=== PATIENT | male | born 1985 | race Two or more races ===

== ENCOUNTER 2025-07-28 01:54 | Emergency (ER) | payer SELFPAY ==
[2025-07-28 01:56] VITALS: BP 144/100
[2025-07-28] MEDS: TYLENOL 1000 MG PO (03:57)
[2025-07-28 04:49] VITALS: BP 129/79
[2025-07-28 05:00] VITALS: BP 127/81
--- NOTE | 2025-07-28 05:42 | ED.GENMED ---
History of Present Illness
General
Chief Complaint: Musculo-Skeletal Complaint
Source: patient
Exam Limitations: none
Time Seen by Provider: 07/28/25 05:03
Nursing documentation reviewed up to this point in time: agreed with
History of Present Illness
History of Present Illness:
Note:
CHIEF COMPLAINT(S)
Knee pain and trouble bearing weight
HISTORY OF PRESENT ILLNESS
The patient, a 40-year-old male with no pmh, presents today with reports knee pain for the past few weeks. Today, while walking up steps, he felt as though something 'cracked' or pop in his knee, causing pain. He denies falling but describes
difficulty bearing weight and experiencing significant pain when trying to stand or walk. The pain is primarily located at the front of the knee and is described as exacerbated by movement. There is no mention of previous similar incidents or
specific events that triggered the initial onset. The patient denies any numbness or tingling sensations. He reports that he may have twisted and externally rotated his knee when going up the stairs. The current state of pain prevents the patient
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 He denies fevers or chills, rashes, recent surgeries, recent joint injections.
PAST MEDICAL AND SURIGICAL HISTORY
The patient reports a sensitivity to ibuprofen, resulting in acid reflux symptoms.
PHYSICAL EXAM
General: Alert, in distress due to pain
Skin: Warm and dry
Head: Normocephalic, atraumatic
Neck: Supple, trachea midline
Eye, Ears, Nose, Mouth, and Throat: Oral mucosa moist
Cardiovascular: Normal peripheral perfusion, No edema
Respiratory: Respirations are non-labored
Gastrointestinal: Abdomen nondistended
Back: Normal range of motion and alignment
Musculoskeletal: Left knee suprapatellar swelling noted no overlying ecchymosis, negative anterior drawer, no pain or laxity with varus and valgus stress, pain with knee extension, no palpable bony deformities. Unable to bear weight on affected
limb, ambulation stable with crutches.
Neurological: Alert and oriented to person, place, time, and situation, No focal neurological deficit observed
Psychiatric: Cooperative, appropriate mood & affect
PROBLEM LIST
Acute:
- Knee pain with potential ligament injury
Chronic:
- Sensitivity to ibuprofen
PLAN
- Administer Toradol injection for acute pain management, given patients history of gastric sensitivity to NSAIDs.
- Provide a knee immobilizer to support the joint and aid in stabilization.
- The patient will be given crutches for partial weight-bearing to assist with mobility.
- Recommend follow-up with an medical sales specialist to assess the need for further imaging, such as an MRI, to evaluate potential ligament injury.
- Advise the patient on rest and avoiding weight-bearing activities as much as possible.
- Plan to write a prescription for prescription-strength ibuprofen, considering the need for gastric protection with a medication like famotidine (Pepcid), if needed, to counteract acid-related issues.
DIFFERENTIAL DIAGNOSIS
The Differential Diagnosis includes, in no particular order and is not limited to:
1. Knee ligament sprain or tear (ACL, MCL, LCL, PCL)
2. Meniscal injury
3. Patellar fracture
4. Knee dislocation or subluxation
5. Osteoarthritis exacerbation
6. Tendinitis or bursitis
7. Chondromalacia patellae
8. Referred pain from hip or spine
9. Rheumatologic condition
10. Infection (although less likely given lack of systemic symptoms)
Disposition:
SUMMARY OF ENCOUNTER
The patient, a 40-year-old male with no past medical history, presented with knee pain following a twisting injury while ascending stairs. He reported hearing a 'pop' but denies any fevers, chills, or rashes. He experiences no pain when still but is
in pain when moving or bearing weight on the knee. The physical exam showed the patient to be well-appearing and in no acute distress. Mild suprapatellar swelling was noted, and knee joint stability was observed. An X-ray showed no signs of
fracture, suggesting a knee sprain.
DISPOSITION
Discharge
ASSESSMENT
Knee sprain with no signs of fracture on X-ray.
EMERGENCY TREATMENTS ADMINISTERED
Discussed options for knee immobilization and use of crutches for ambulation, emphasizing weight-bearing only as symptoms improve.
PLAN
The plan includes immobilizing the knee and ambulating with crutches initially, advising the patient to resume weight bearing as symptoms improve. Emphasis was placed on the importance of follow-up with orthopedics and primary care provider for
reassessment. Discussed [id number] pain relief options.
PATIENT EDUCATION AND COUNSELING
Discussed knee immobilization and use of crutches, stressing the importance of follow-up with orthopedics and a primary care provider. Recommended [id number] pain relief.
FOLLOW-UP INSTRUCTIONS
Follow-up with orthopedics and primary care provider for reassessment.
MEDICATION RECONCILIATION
Discussed [id number] pain relief modalities.
MEDICAL DECISION MAKING
- Number and Complexity of Problems Addressed: Acute knee sprain as per exam findings and X-ray results with evidence of mild swelling but no fracture.
- Data:
- Category 1
- My independent interpretation of knee X-ray shows no signs of fracture.
- Risk: Consideration of Admission/Observation: Escalation of care including admission/observation was considered given the complexity and risk of the patients presenting complaint, exam findings, and/or their underlying conditions. However,
ultimately, I feel the patient is safe for outpatient management with close follow-up. Reasoning: Work-up reassuring, does not reveal any acute life/organ-threatening processes, patients symptoms well controlled upon reevaluation, reexamination is
reassuring, vitals are stable, patient agreeable with discharge, reliable for follow-up.
DIAGNOSIS
Knee sprain, ICD-10-CM Code: S83.911A
Review of Systems
Review of Systems
All Other Systems: ROS reviewed and negative except as documented in HPI and ROS
Phy Exam
Physical Exam
Physical Exam:
see hpi
Course
Orders/Labs/Results
Orders:
Orders
07/28/25 02:00
Knee, Left 4 or More Views [CR Knee - Left 4 Or More View*] Urgent
Comment:
Reason For Exam: FELT A POP GOING UP STAIRS
07/28/25 03:56
Acetaminophen [Tylenol] 1,000 mg .ROUTE .STK-MED ONE
Acetaminophen [Tylenol] 1,000 mg PO NOW STA
07/28/25 05:55
Crutches-Treatment ONCE
Knee Immobilizer Left-Treatmen ONCE
Ketorolac [Toradol] 30 mg IM NOW STA
Vital Signs
Initial and Last Documented VS:
Initial Vital Signs
Temp Pulse Resp BP Pulse Ox
97.8 F 84 22 144/100 95
07/28/25 01:56 07/28/25 01:56 07/28/25 01:56 07/28/25 01:56 07/28/25 01:56
Last Documented Vital Signs
Temp Pulse Resp BP Pulse Ox
97.7 F 83 20 140/78 94
07/28/25 07:35 07/28/25 07:35 07/28/25 07:35 07/28/25 07:00 07/28/25 07:35
*Pulse Oximetry
SaO2: 95
Patient hypoxic: no
*Critical Care Note
Total Time (30-74mins, 75-104mins- exclusive of procedures): Not Applicable
ED Attending Note
-
Portions of this chart may have been created with voice recognition software.� Occasional wrong word or��sound alike� substitutions may have occurred due to the inherent limitations of voice recognition software.
Discharge Plan
Departure
Patient Disposition: Home (Routine Discharge)
Date of Disposition: 07/28/25
Time of Disposition: 07:16
Patient with high blood pressure during this ER visit?: Yes
Condition: Good
Discharge Problem:
Knee sprain
Instructions: How to Use Crutches, Knee Sprain (DC), BLOOD PRESSURE
Prescriptions:
New
famotidine [Pepcid] 20 mg tablet
20 mg PO BID Qty: 10 0RF
Referrals:
UNKNOWN - PT DOES,NOT KNOW [Family Provider]
Thanh Palacios MD [Active, Orthopedics] - Call in 1-3 days for appt
Activity Restrictions/Additional Instructions:
As discussed, I recommend taking ibuprofen and Tylenol alternating for your pain. You can bear weight as tolerated but if you have increasing pain, you can use crutches for the next few days.
Please keep the leg elevated at home, this will help with swelling.
Please call the attached number to schedule appointment with orthopedics.
Pepcid has been sent to your pharmacy which you can use if he starts to develop some epigastric discomfort.
PLEASE RETURN TO ER SHOULD YOU DEVELOP ANY ACUTE WORSENING OF YOUR PAIN OR SWELLING, LOSS OF SENSATION IN THE LOWER EXTREMITY, PALLOR, CHEST PAIN, SHORTNESS OF BREATH, FEVERS OR CHILLS, REDNESS SURROUNDING THE KNEE, OR ANY OTHER SIGNS OR SYMPTOMS
WORRISOME TO YOU.
Interventions
Interventions:
*Risk Screen - Suicide Last Done: 07/28/25 01:56
*General Assessment Last Done: 07/28/25 04:53
*Neglect/Abuse Screening Last Done: 07/28/25 01:56
*ED- Fall Risk Assessment Last Done: 07/28/25 04:53
*ED COVID-19 Vaccine History Last Done: 07/28/25 04:53
*Nursing Disposition Last Done: 07/28/25 07:40
ED-Musculoskeletal Assessment Last Done: 07/28/25 05:11
Discharge Date and Time
Discharge Date/Time: 07/28/25 07:40
Print Language: LITHUANIAN
[2025-07-28] MEDS: TORADOL 30 MG IM (05:58)
[2025-07-28 06:32] VITALS: BP 137/81
[2025-07-28 07:00] VITALS: BP 140/78
== END 2025-07-28 07:40 | disposition home or self-care (01) ==
LOC: EMR 01:54
PROVIDERS: EMERGENCY PHYSICIAN Student in an Organized Health Care Education/Training Program
DX: S83.92XA Sprain of unspecified site of left knee, initial encounter (principal); X58.XXXA Exposure to other specified factors, initial encounter; K21.9 Gastro-esophageal reflux disease without esophagitis; Y93.01 Activity, walking, marching and hiking
CPT/HCPCS: 29505; 96372; 99284; 73564